=== PATIENT | male | born 1965 | race Caucasian/White ===

== ENCOUNTER 2017-08-11 22:41 | Inpatient (IN) | payer BC ==
--- NOTE | 2017-08-11 23:35 | ED PDOC ---
Arrival/HPI - General Chief Complaint: GI Problem Time Seen by Provider: 08/11/17 22:52 - History of Present Illness Narrative History of Present Illness (Text): 52 y/o M c PMHx HTN p/w GI bleeding today. Patient reports 4 bowel movements today, the last two with BRBPR, painful while defecating. Also with abdominal pain earlier but not now. Denies fever, chills, chest pain, dyspnea, nausea, vomiting, dysuria. Patient being treated for prostatitis for the past few weeks. Past Medical History - Cardiac Hx Hypertension: No - Psychiatric Hx Substance Use: No - Surgical History Hx Joint Replacement: Yes Family/Social History Family/Social History: No Known Family HX Smoking Status: no Hx Alcohol Use: No Hx Substance Use: No Allergies/Home Meds Allergies/Adverse Reactions: Allergies No Known Allergies Allergy (Verified 08/11/17 22:58) Home Medications: Home Meds Medication Instructions Recorded Confirmed Esomeprazole Magnesium [Nexium] 20 mg PO DAILY 08/12/17 08/12/17 Valsartan/Hydrochlorothiazide 1 each PO DAILY 08/12/17 08/12/17 [Diovan Hct 320-25 mg Tablet] Review of Systems - Physician Review All systems were reviewed & negative as marked: Yes - Review of Systems Constitutional: absent: Fevers Respiratory: absent: SOB Physical Exam - Physical Exam Narrative Physical Exam (Text): Gen: NAD Head: NC/AT ENT: MMM Eyes: PERRL Chest: No tenderness CV: Regular rate Lungs: CTA b/l Abd: Soft, NT Rectal: No external hemorrhoids. Mild prostate tenderness. Small amount of BRBPR. Extremities: No edema Skin: no rash Neuro: Alert Vital Signs Temp Pulse Resp BP Pulse Ox 08/12/17 02:57 71 18 124/62 98 08/12/17 00:41 98.1 F 76 18 136/74 100 08/11/17 22:59 98.2 F 78 18 158/84 H 99 Medical Decision Making ED Course and Treatment: Plan: -- CT Abd & Pelvis -- EKG -- Labs -- Chest X-Ray -- Urinalysis w/ micro -- Reassess and disposition Progress Notes: CXR Impression: No acute disease. EXAM: CT Abdomen and Pelvis With Intravenous Contrast Dictated and Authenticated by: Mukul Cosby MD 08/12/2017 1:56 AM IMPRESSION: 1. Gastric wall thickening versus underdistention. Clinical correlation is needed. 2. Incidental/non-acute findings are described above. 08/12/17 02:[address] Franz who is aware and agrees with the plan. Accepts patient into her service. 08/12/17 04:12 EKG: Ordered, reviewed, and independently interpreted the EKG. Rate : 73 BPM Rhythm : NSR Interpretation : No ST-segment elevations. Comparison : No previous EKG for comparison. - Lab Interpretations Lab Results: 08/11/17 23:04 08/11/17 23:04 Lab Results 08/11/17 23:04: Sodium 138, Potassium 3.4 L, Chloride 101, Carbon Dioxide 25, Anion Gap 15, BUN 19, Creatinine 1.0, Est GFR ( Amer) > 60, Est GFR (Non- Af Amer) > 60, Random Glucose 126 H, Calcium 8.9, Total Bilirubin 0.5, AST 74 H , ALT 133 H, Alkaline Phosphatase 64, Total Protein 7.4, Albumin 4.1, Globulin 3.3, Albumin/Globulin Ratio 1.2, Lipase 135 08/11/17 23:04: WBC 7.7, RBC 4.34, Hgb 14.4, Hct 39.5 L, MCV 91.0, MCH 33.2, MCHC 36.5, RDW 13.4, Plt Count 262, MPV 8.6, Gran % 56.1, Lymph % (Auto) 35.0, [place] % (Auto) 6.5 H, Eos % (Auto) 2.1, Baso % (Auto) 0.3, Gran # 4.35, Lymph # ( Auto) 2.7, [place] # (Auto) 0.5, Eos # (Auto) 0.2, Baso # (Auto) 0.02 - RAD Interpretation Radiology Orders: 08/11/17 23:30 ABD & PELVIS IV CONTRAST ONLY [CT] Stat CHEST PORTABLE [RAD] Stat - Medication Orders Current Medication Orders: Sodium Chloride (Sodium Chloride 0.9%) 1,000 mls @ 80 mls/hr IV .[id number] ONE Stop: 08/12/17 14:56 Last Admin: 08/12/17 02:43 Dose: 80 mls/hr eMAR Start Stop Document 08/12/17 02:43 DORI (Rec: 08/12/17 02:44 [email or web address] [id number]) Intravenous Solution Start Date 08/12/17 Start Time 02:44 Pantoprazole Sodium (Protonix Inj) 40 mg IVP DAILY OLIVE Discontinued Medications Pantoprazole Sodium (Protonix Inj) 40 mg IVP STAT STA Stop: 08/12/17 02:29 Last Admin: 08/12/17 02:43 Dose: 40 mg IVP Administration Document 08/12/17 02:43 DORI (Rec: 08/12/17 02:43 DORI [id number]) Charges for Administration # of IVP Administrations 1 Disposition/Present on Arrival - Present on Arrival Any Indicators Present on Arrival: No History of DVT/PE: No History of Uncontrolled Diabetes: No Urinary Catheter: No History of Decub. Ulcer: No History Surgical Site Infection Following: None - Disposition Have Diagnosis and Disposition been Completed?: Yes Diagnosis: GI bleed Disposition: HOSPITALIZED Disposition Time: 02:04 Patient Plan: Admission Condition: GUARDED
[2017-08-12 00:14] LABS: BASO # 0.02 K/mm3 (0.0-2.0); BASO % 0.3 % (0.0-3.0); EOS # 0.2 (0.0-0.7); EOS % 2.1 % (1.5-5.0); GRAN # 4.35 (1.4-6.5); GRAN % 56.1 % (50.0-68.0); HEMOGLOBIN 14.4 g/dL (14.0-18.0); LYMPH # 2.7 (1.2-3.4); MEAN CORPUSCULAR HEMOGLOBIN 33.2 pg (25.0-35.0); MEAN CORPUSCULAR HGB CONC 36.5 g/dl (31.0-37.0); MEAN PLATELET VOLUME 8.6 fl (7.0-11.0); MONO # 0.5 (0.1-0.6); MONO % 6.5 % (1.0-6.0); RBC 4.34 10^6/uL (3.5-6.1); RED CELL DISTRIBUTION WIDTH 13.4 % (11.5-14.5); WHITE BLOOD COUNT 7.7 10^3/ul (4.5-11.0)
[2017-08-12 00:17] LABS: ALB/GLOB RATIO 1.2 (1.1-1.8); ALBUMIN 4.1 g/dL (3.0-4.8); CALCIUM 8.9 mg/dL (8.4-10.5); GFR AFRICAN-AMERICAN > 60; GFR NON-AFRICAN AMERICAN > 60; LIPASE 135 U/L (23-300)
[2017-08-12 00:22] LABS: ALT/SGPT 133 U/L (7-56); AST/SGOT 74 U/L (17-59); BLOOD UREA NITROGEN 19 mg/dL (7-21)
[2017-08-12] MEDS ORDERED: Iohexol 350 MG/100 ML VIAL ONE (00:33)
--- NOTE | 2017-08-12 01:56 | CT ---
EXAM: CT Abdomen and Pelvis With Intravenous Contrast CLINICAL HISTORY: 52 years old, male; Pain; Abdominal pain; Generalized; Additional info: Gi bleed TECHNIQUE: Axial computed tomography images of the abdomen and pelvis with intravenous contrast. All CT scans at this facility use one or more dose reduction techniques, viz.: automated exposure control; ma/kV adjustment per patient size (including targeted exams where dose is matched to indication; i.e. head); or iterative reconstruction technique. Coronal and sagittal reformatted images were created and reviewed. CONTRAST: 96 mL of OMNI 350 administered intravenously. COMPARISON: No relevant prior studies available. FINDINGS: Lung bases: Minimal atelectasis/scarring. ABDOMEN: Liver: Fatty infiltration. Gallbladder and bile ducts: No calcified stones. No ductal dilation. Pancreas: No ductal dilation. No mass. Spleen: No splenomegaly. Adrenals: No mass. Kidneys and ureters: No mass. No hydronephrosis. Stomach and bowel: Mild mural thickening versus underdistention body/fundus of stomach. No definite bowel wall thickening. No obstruction. PELVIS: Appendix: Appendectomy. Bladder: Unremarkable. Reproductive: Unremarkable as visualized. ABDOMEN and PELVIS: Intraperitoneal space: No significant fluid collection. No free air. Bones/joints: Mild degenerative changes of spine. No acute fracture. Soft tissues: Small LEFT inguinal hernia containing fat. Vasculature: Minimal atherosclerotic disease. No aneurysm. Lymph nodes: No pathologically enlarged lymph nodes. IMPRESSION: 1. Gastric wall thickening versus underdistention. Clinical correlation is needed. 2. Incidental/non-acute findings are described above.
[2017-08-12] MEDS ORDERED: Sodium Chloride 0.9% 1,000 ML IV ONE (02:27)
[2017-08-12 03:02] LABS: URINE BILIRUBIN NEGATIVE (NEGATIVE); URINE BLOOD NEGATIVE (NEGATIVE); URINE GLUCOSE (UA) NEGATIVE (NEGATIVE); URINE LEUKOCYTE ESTERASE NEGATIVE Leu/uL (NEGATIVE); URINE PROTEIN TRACE mg/dL (<30 mg/dL); URINE UROBILINOGEN 0.2 E.U./dL (<1 E.U./dL)
[2017-08-12 03:14] LABS: URINE APPEARANCE CLEAR (CLEAR); URINE COLOR YELLOW (YELLOW)
[2017-08-12 03:15] LABS: URINE EPITHELIAL CELLS 0 - 2 /hpf (0-5); URINE RBC 0 - 2 /hpf (0-2); URINE WBC 0 - 2 /hpf (0-6)
--- NOTE | 2017-08-12 08:39 | RAD ---
HISTORY: gi bleed COMPARISON: No prior. FINDINGS: LUNGS: No active pulmonary disease. PLEURA: No significant pleural effusion identified, no pneumothorax apparent. CARDIOVASCULAR: Normal. OSSEOUS STRUCTURES: No significant abnormalities. VISUALIZED UPPER ABDOMEN: Normal. OTHER FINDINGS: None. IMPRESSION: No active disease.
[2017-08-12 09:54] LABS: BASO # 0.03 K/mm3 (0.0-2.0); BASO % 0.5 % (0.0-3.0); EOS # 0.1 (0.0-0.7); GRAN # 3.61 (1.4-6.5); HEMOGLOBIN 13.7 g/dL (14.0-18.0); LYMPH # 1.9 (1.2-3.4); LYMPH % 31.2 % (22.0-35.0); MEAN CELL VOLUME 90.8 fl (80.0-105.0); MEAN CORPUSCULAR HEMOGLOBIN 32.2 pg (25.0-35.0); MEAN CORPUSCULAR HGB CONC 35.4 g/dl (31.0-37.0); MEAN PLATELET VOLUME 8.3 fl (7.0-11.0); MONO # 0.4 (0.1-0.6); MONO % 6.3 % (1.0-6.0); RBC 4.26 10^6/uL (3.5-6.1); RED CELL DISTRIBUTION WIDTH 13.5 % (11.5-14.5)
[2017-08-12 10:04] LABS: BLOOD UREA NITROGEN 16 mg/dL (7-21); CALCIUM 8.3 mg/dL (8.4-10.5); GFR AFRICAN-AMERICAN > 60; GFR NON-AFRICAN AMERICAN > 60
--- NOTE | 2017-08-12 10:32 | CARD ---
APPROVED REPORT EKG Measurement Heart [id number] <Conclusion> Normal sinus rhythm RSR' or QR pattern in V1 suggests right ventricular conduction delay Borderline ECG
--- NOTE | 2017-08-12 11:55 | CP.PCM.CON ---
History of Present Illness - History of Present Illness History of Present Illness: PGY-2 GI consult note for Dr. Tate 52 yo male with PMH HTN presents with GI bleeding. Patient reports 4 bowel movements throughtout the day yesterday. Patient states that he had normal BM in the morning however his second BM later in gladys day was associated with abd pain. Patient states that he had 2 more BM in the evening both with bright red blood per rectum. Patient states that he was recently treated for prostatitis. He states that he was having painful in his anus while defecating. He was told he had large, inflammed prostate and was following up with urologist. He denies previous bleeding. He denies fever, chills, chest pain, dyspnea, nausea, vomiting, dysuria. He denies use of over the counter medication like Motrin, Tylenol. Last colonoscopy about 1-2 years ago, no abnormalities per patient. No previous EGD. PMH: HTN psh: appendectomy, knee repair social history: denies smoking, drinks about 1 case of beer per week, deneis illicit drug use family history: denies Past Patient History - Past Social History Smoking Status: Former Smoker - CARDIAC Hx Hypertension: Yes - MUSCULOSKELETAL/RHEUMATOLOGICAL Hx Falls: No - PSYCHIATRIC Hx Substance Use: No - SURGICAL HISTORY Hx Joint Replacement: Yes Meds Allergies/Adverse Reactions: Allergies Allergy/AdvReac Type Severity Reaction Status Date / Time No Known Allergies Allergy Verified 08/11/17 22:58 - Medications Medications: Current Medications Sodium Chloride (Sodium Chloride 0.9%) 1,000 mls @ 80 mls/hr IV .[id number] ONE Stop: 08/12/17 14:56 Last Admin: 08/12/17 02:43 Dose: 80 mls/hr Pantoprazole Sodium (Protonix Inj) 40 mg IVP DAILY OLIVE Physical Exam - Constitutional Appears: No Acute Distress - Head Exam Head Exam: ATRAUMATIC, NORMOCEPHALIC - Eye Exam Eye Exam: EOMI, Normal appearance - ENT Exam ENT Exam: Mucous Membranes Moist - Respiratory Exam Respiratory Exam: Clear to Auscultation Bilateral, NORMAL BREATHING PATTERN. absent: Rales, Rhonchi, Wheezes, Respiratory Distress, Stridor - Cardiovascular Exam Cardiovascular Exam: REGULAR RHYTHM, +S1, +S2. absent: Bradycardia, Tachycardia , Systolic Murmur - GI/Abdominal Exam GI & Abdominal Exam: Normal Bowel Sounds, Soft. absent: Distended, Firm, Guarding, Hernia, Tenderness - Extremities Exam Extremities exam: Positive for: normal inspection. Negative for: pedal edema, tenderness - Neurological Exam Neurological exam: Alert, Oriented x3 - Skin Skin Exam: Dry, Intact, Normal Color, Warm Results - Vital Signs Recent Vital Signs: Last Vital Signs Temp 98.2 F 08/12/17 08:39 Pulse 72 08/12/17 08:39 Resp 20 08/12/17 08:39 BP 127/77 08/12/17 08:39 Pulse Ox 97 08/12/17 08:39 - Labs Result Diagrams: 08/12/17 09:48 08/12/17 09:48 Labs: Laboratory Results - last 24 hr 08/12/17 08/12/17 08/12/17 02:49 09:48 09:48 WBC 6.0 D RBC 4.26 Hgb 13.7 L Hct 38.7 L MCV 90.8 MCH 32.2 MCHC 35.4 RDW 13.5 Plt Count 218 MPV 8.3 Gran % 60.0 Lymph % (Auto) 31.2 Glynn % (Auto) 6.3 H Eos % (Auto) 2.0 Baso % (Auto) 0.5 Gran # 3.61 Lymph # (Auto) 1.9 Glynn # (Auto) 0.4 Eos # (Auto) 0.1 Baso # (Auto) 0.03 Sodium 140 Potassium 3.8 Chloride 105 Carbon Dioxide 24 Anion Gap 15 BUN 16 Creatinine 0.9 Est GFR ( Amer) > 60 Est GFR (Non-Af Amer) > 60 Random Glucose 114 H Calcium 8.3 L Carcinoembryonic Ag Urine Color Yellow Urine Appearance Clear Urine pH 6.0 Ur Specific [place] 1.020 Urine Protein Trace H Urine Glucose (UA) Negative Urine Ketones Negative Urine Blood Negative Urine Nitrate Negative Urine Bilirubin Negative Urine Urobilinogen 0.2 Ur Leukocyte Esterase Negative Urine RBC 0 - 2 Urine WBC 0 - 2 Ur Epithelial Cells 0 - 2 Stool Occult Blood 08/12/17 08/12/17 09:48 09:50 WBC RBC Hgb Hct MCV MCH MCHC RDW Plt Count MPV Gran % Lymph % (Auto) Glynn % (Auto) Eos % (Auto) Baso % (Auto) Gran # Lymph # (Auto) Glynn # (Auto) Eos # (Auto) Baso # (Auto) Sodium Potassium Chloride Carbon Dioxide Anion Gap BUN Creatinine Est GFR ( Amer) Est GFR (Non-Af Amer) Random Glucose Calcium Carcinoembryonic Ag 1.4 Urine Color Urine Appearance Urine pH Ur Specific [place] Urine Protein Urine Glucose (UA) Urine Ketones Urine Blood Urine Nitrate Urine Bilirubin Urine Urobilinogen Ur Leukocyte Esterase Urine RBC Urine WBC Ur Epithelial Cells Stool Occult Blood Positive H Assessment & Plan - Assessment and Plan (Free Text) Assessment: 52 yo male with PMH HTN presents with GI bleeding. Plan: - differential diagnoses include hemohrroids, Diverticulosis - CT abd/pelvis with IV contrast showed gastric wall thickening vs under distension - continue monitor H&H - continue PPI daily - patient will most likely require elective colonoscopy case reviewed and discussed with Dr. Tate
[2017-08-13] MEDS ORDERED: Oxycodone/Acetaminophen 5/325 mg Tab PO PRN (06:53)
[2017-08-13] MEDS ORDERED: Sodium Chloride 0.9% 1,000 ML IV SCH ×2 (07:00→15:00)
--- NOTE | 2017-08-13 07:04 | HP ---
CHIEF COMPLAINT AND HISTORY OF PRESENT ILLNESS: This is a 52-year-old male who had come into the hospital complaining of rectal bleeding. He says he has had multiple bowel movements with bleeding. He also had a bowel movement this morning that was bleeding. He says he has no abdominal pain. He says that he has been drinking. He drinks anywhere 1 to 4 drinks a day. He denies NSAID use. The patient has no complaints of any fevers or chills. No nausea, no vomiting. No dysuria. No headaches. No dizziness. No blurred vision. He had a colonoscopy about 2 years ago. He has not had any EGDs in the past. ALLERGIES: NO KNOWN DRUG ALLERGIES. HOME MEDICATIONS: Have been reviewed on the [facility]. PAST MEDICAL HISTORY: Hypertension. PAST SURGICAL HISTORY: Appendectomy, knee repair. SOCIAL HISTORY: He denies smoking. He does drink almost daily. FAMILY HISTORY: Noncontributory. PHYSICAL EXAMINATION: VITAL SIGNS: Temperature is 98.2, pulse is 72, blood pressure is 127/77, respirations 20, O2 saturation is 97%. Height is 5 feet 5 inches, weight is 188 pounds. BMI is 31.3. GENERAL: The patient lying in bed, uncomfortable, and in no acute distress. HEENT: Atraumatic and normocephalic. Anicteric sclerae. Moist mucosa. Rigby conjunctivae. No oral lesions. NECK: No JVD, anterior and posterior adenopathy, thyromegaly, or bruits. CARDIOVASCULAR: S1 and S2 regular. No murmur, rubs, or gallop. LUNGS: Clear to auscultation bilaterally. No wheezes, rales, or rhonchi. ABDOMEN: Bowel sounds are positive. Soft, nontender and nondistended. No hepatosplenomegaly. No rebound and no guarding EXTREMITIES: No cyanosis, clubbing, or edema. NEUROLOGIC: No facial asymmetry. Tongue is midline. No uvula deviation. Power is 5/5 upper extremity and lower extremity. Sensation intact in upper extremity and lower extremity. PSYCHIATRIC: He is awake, alert and oriented x3. No anxiety or depression. He has normal affect. GENITOURINARY: No CVA tenderness. VASCULAR: 2+ pulses in the carotid pulses and pedal pulses. SKIN: No erythema or nodules SPINE: Shows normal curvature. LABORATORY DATA: White count is 7.7, hemoglobin 14.4, platelet count is 262. Chemistry shows sodium 138, potassium is 3.4, creatinine is 1. AST 74, ALT is 133, albumin is 4.1. Urine shows glucose is negative. Blood is negative. Nitrites are negative. The stool occult is positive. Chest x-ray done shows no active disease. CT of the abdomen and pelvis done shows gastric wall thickening. EKG shows sinus rhythm at 73, QTc is 412. ASSESSMENT: 1. Rectal bleeding. 2. Hypertension. PLAN: The patient is currently admitted to the hospital. He is on IV fluids. This was discontinued. He is on Protonix daily. Patient is currently n.p.o. He is being seen by GI. The patient is on Protonix. We will continue to monitor his H and H. We will repeat his CBC. We will await further input from GI. Tobin Jefferson MD
[2017-08-13 07:22] LABS: HEMOGLOBIN 13.4 g/dL (14.0-18.0); MEAN CELL VOLUME 92.2 fl (80.0-105.0); MEAN CORPUSCULAR HEMOGLOBIN 31.8 pg (25.0-35.0); MEAN CORPUSCULAR HGB CONC 34.5 g/dl (31.0-37.0); MEAN PLATELET VOLUME 8.4 fl (7.0-11.0); RBC 4.21 10^6/uL (3.5-6.1); RED CELL DISTRIBUTION WIDTH 13.8 % (11.5-14.5); WHITE BLOOD COUNT 6.3 10^3/ul (4.5-11.0)
[2017-08-13 07:55] LABS: IRON 85 ug/dL (45-180)
[2017-08-13 08:05] LABS: % IRON SATURATION 32 % (20-55); TOTAL IRON BINDING CAPACITY 268 ug/dL (261-462)
[2017-08-13] MEDS ORDERED: Peg-Electrolyte Oral Soln 4L (Golytely) PO STA (09:26)
[2017-08-13] MEDS ORDERED: Propofol 10 mg/ml Inj (20 ML) ONE (13:36)
[2017-08-13 15:17] VITALS: O2SAT 98
[2017-08-13 17:19] VITALS: BP 127/87; PULSE 61; RESP 12; TEMP 97.9
--- NOTE | 2017-08-14 17:54 | DS ---
HISTORY OF PRESENT ILLNESS: This is a 52-year-old male who has come in to the hospital because of rectal bleeding. The patient states that he had been bleeding and was concerned so he came in to the hospital for further evaluation. He was seen by GI. He had a repeat colonoscopy that was done this morning, it shows internal hemorrhoids, he otherwise felt well. He also had a EGD done, it showed gastritis. He also had diverticulosis that was seen. He was discharged home to follow up as an outpatient with primary care doctor. PHYSICAL EXAMINATION: VITAL SIGNS: Temperature is 97.9, pulse is 61, blood pressure is 127/87, respirations 12. GENERAL: The patient is lying in bed, flat, comfortable. HEENT: No oral lesion. Anicteric sclerae. Moist mucosa. NECK: No JVD, adenopathy, or thyromegaly. CARDIOVASCULAR: S1 and S2, regular. No murmurs, rubs, or gallops. LUNGS: Clear to auscultation bilaterally. No wheeze, rales, or rhonchi. ABDOMEN: Bowel sounds are positive, soft, nontender and nondistended. EXTREMITIES: No cyanosis, clubbing or edema. ASSESSMENT: 1. Rectal bleeding resolved. 2. Diverticulosis. 3. Hypertension. 4. Gastritis. PLAN: Patient is going to be discharged home today. He was on Protonix in the hospital. He is on a heart-healthy diet. He is going to follow up with his primary care doctor. CONDITION: Stable. ACTIVITY: Increase as tolerated. Tobin Jefferson MD
== END 2017-08-13 17:55 | disposition home or self-care (01) | DRG 379 ==
LOC: ED 22:41 → ERH 08-12 02:19 → 5RSO 08-12 04:34
PROVIDERS: ADMIT Internal Medicine Medical Oncology; ATTEND Internal Medicine Medical Oncology
PROC: 0DB68ZX Excision of Stomach, Via Natural or Artificial Opening Endoscopic, Diagnostic (ICD-10-PCS; principal; 2017-08-13 13:30)
PROC: 0DJD8ZZ Inspection of Lower Intestinal Tract, Via Natural or Artificial Opening Endoscopic (ICD-10-PCS; 2017-08-13 13:30)
DX: K92.2 Gastrointestinal hemorrhage, unspecified (principal); I10 Essential (primary) hypertension; Z87.891 Personal history of nicotine dependence; Z96.60 Presence of unspecified orthopedic joint implant; K29.50 Unspecified chronic gastritis without bleeding; K57.30 Diverticulosis of large intestine without perforation or abscess without bleeding; K64.8 Other hemorrhoids

== ENCOUNTER 2018-06-12 15:34 | Emergency (ER) | payer BC ==
[2018-06-12 16:05] VITALS: BP 112/52; PULSE 86; RESP 18; O2SAT 96; BMI 30.7
[2018-06-12 16:59] LABS: BASO # 0.02 K/mm3 (0.0-2.0); BASO % 0.1 % (0.0-3.0); EOS # 0.1 (0.0-0.7); EOS % 0.4 % (1.5-5.0); HEMOGLOBIN 15.5 g/dL (14.0-18.0); LYMPH # 1.8 (1.2-3.4); LYMPH % 11.3 % (22.0-35.0); MEAN CELL VOLUME 92.8 fl (80.0-105.0); MEAN CORPUSCULAR HEMOGLOBIN 32.7 pg (25.0-35.0); MEAN CORPUSCULAR HGB CONC 35.2 g/dl (31.0-37.0); MEAN PLATELET VOLUME 8.7 fl (7.0-11.0); RBC 4.74 10^6/uL (3.5-6.1); RED CELL DISTRIBUTION WIDTH 12.9 % (11.5-14.5)
[2018-06-12 17:01] LABS: URINE BILIRUBIN NEGATIVE (NEGATIVE); URINE BLOOD LARGE (NEGATIVE); URINE GLUCOSE (UA) NEGATIVE (NEGATIVE); URINE LEUKOCYTE ESTERASE MODERATE Leu/uL (NEGATIVE); URINE PROTEIN NEGATIVE mg/dL (<30 mg/dL); URINE UROBILINOGEN 0.2 E.U./dL (<1 E.U./dL)
[2018-06-12 17:03] LABS: URINE APPEARANCE SLIGHT-CLOUDY (CLEAR); URINE COLOR YELLOW (YELLOW)
--- NOTE | 2018-06-12 17:04 | ED PDOC ---
Arrival/HPI - General Chief Complaint: Male Genitourinary Time Seen by Provider: 06/12/18 15:37 Historian: Patient - History of Present Illness Narrative History of Present Illness (Text): 06/12/18 17:01 52-year-old male presents today with dysuria and urinary frequency that started this morning. Patient states this afternoon he started to develop right-sided abdominal pain with fever and chills. Patient complaining of continued dysuria and frequency. No testicular pain. No back pain. No chest pain or shortness of breath. No URI symptoms. Patient states he took an unknown medication early this afternoon without improvement in his symptoms. No other complaints Past Medical History - Provider Review Nursing Documentation Reviewed: Yes - Travel History Have you recently traveled outside [place] w/in the past 3 mons?: No - Cardiac Hx Cardiac Disorders: Yes Hx Hypertension: Yes Hx Pacemaker: No - Hematological/Oncological Hx Blood Transfusions: No Hx Blood Transfusion Reaction: No - Musculoskeletal/Rheumatological Hx Musculoskeletal Disorders: No - Psychiatric Hx Emotional Abuse: No Hx Physical Abuse: No Hx Substance Use: No - Surgical History Hx Appendectomy: Yes - Anesthesia Hx Anesthesia: Yes Hx Anesthesia Reactions: No Hx Malignant Hyperthermia: No - Suicidal Assessment Feels Threatened In Home Enviroment: No Family/Social History - Physician Review Nursing Documentation Reviewed: Yes Family/Social History: Unknown Family HX Smoking Status: Former Smoker Hx Alcohol Use: No Hx Substance Use: No Allergies/Home Meds Allergies/Adverse Reactions: Allergies No Known Allergies Allergy (Verified 06/12/18 15:55) Home Medications: Home Meds Medication Instructions Recorded Confirmed Esomeprazole Magnesium [Nexium] 20 mg PO DAILY 08/12/17 06/12/18 Losartan/Hydrochlorothiazide 1 each PO DAILY 06/12/18 06/12/18 [Losartan-Hctz 50-12.5 mg Tab] amLODIPine [Norvasc] 5 mg PO DAILY 06/12/18 06/12/18 Review of Systems - Review of Systems Constitutional: Fevers. absent: Fatigue ENT: absent: Sore Throat, Sinus Congestion Respiratory: absent: SOB, Cough Cardiovascular: absent: Chest Pain, Palpitations Gastrointestinal: Abdominal Pain. absent: Constipation, Diarrhea, Nausea, Vomiting Genitourinary Male: Dysuria, Frequency. absent: Hematuria Musculoskeletal: absent: Arthralgias, Back Pain, Neck Pain Skin: absent: Rash, Pruritis Neurological: absent: Headache, Dizziness Psychiatric: absent: Anxiety, Depression Physical Exam Vital Signs Reviewed: Yes Vital Signs Temp Pulse Resp BP Pulse Ox 06/12/18 15:48 99.3 F 86 18 112/52 L 96 Temperature: Afebrile Blood Pressure: Normal Pulse: Regular Respiratory Rate: Normal Appearance: Positive for: Well-Appearing, Non-Toxic, Comfortable Pain Distress: None Mental Status: Positive for: Alert and Oriented X 3 - Systems Exam Head: Present: Atraumatic Mouth: Present: Moist Mucous Membranes Neck: Present: Normal Range of Motion Respiratory/Chest: Present: Clear to Auscultation, Good Air Exchange. No: Respiratory Distress, Accessory Muscle Use Cardiovascular: Present: Regular Rate and Rhythm, Normal S1, S2. No: Murmurs Abdomen: Present: Tenderness (minimal rlq tenderness). No: Distention, Peritoneal Signs, Rebound, Guarding Genitourinary Male: Present: Normal External Genitalia, Other (chaparoned by Albert ZULETA). No: Circumcised Penis, Penile Discharge, Testicle Tenderness, Testicle Swelling Back: Present: Normal Inspection. No: CVA Tenderness, Midline Tenderness, Paraspinal Tenderness Upper Extremity: Present: Normal ROM Lower Extremity: Present: Normal ROM Neurological: Present: GCS=15 Skin: Present: Warm, Dry, Normal Color. No: Rashes Psychiatric: Present: Alert, Oriented x 3 Medical Decision Making ED Course and Treatment: 06/12/18 17:03 52-year-old male with right-sided abdominal pain dysuria and urinary frequency with subjective fevers at home all symptoms started today. CBC White blood cell count 16.0 CMP within normal limits Urinalysis: + wbcs, + bacteria Urine culture is pending CAT scan of the abdomen and pelvis:FINDINGS: LOWER THORAX: Minimal linear scar/atelectasis in right lower lobe. LIVER: Unremarkable. No gross lesion or ductal dilatation. GALLBLADDER AND BILE DUCTS: Unremarkable. PANCREAS: Unremarkable. No gross lesion or ductal dilatation. SPLEEN: Unremarkable. ADRENALS: Unremarkable. No mass. KIDNEYS AND URETERS: Unremarkable. No hydronephrosis. No solid mass. VASCULATURE: Unremarkable. No aortic aneurysm. No aortic atherosclerotic calcification or mural plaque present. BOWEL: Unremarkable. No obstruction. No gross mural thickening. APPENDIX: Status post appendectomy PERITONEUM: Unremarkable. No free fluid. No free air. LYMPH NODES: Unremarkable. No enlarged lymph nodes. BLADDER: Bladder poorly distended. Diffuse mural thickening and mucosal enhancement. Possible cystitis. Correlate with urinalysis. REPRODUCTIVE: Normal prostate BONES: No acute fracture. OTHER FINDINGS: None. IMPRESSION: Possible cystitis. No other significant abnormality. 06/12/18 18:40 pt reassessment; pt feeling better after medications; vitals stable. pt started on keflex Po for UTI. all results discussed with patient and his daughter in depth; rx for keflex given. pt advised to f/u with PMD and take medications as prescribed. pt was advised to return immediately if symptoms worsen, persist or if new symptoms develop. Patient verbalizes understanding of discharge instructions and need for immediate followup. All aspects of this case were discussed the attending of record. Impression; UTI Motrin every 6 hours as needed for pain/fever reduction Keflex 1 tablet twice daily times 10 days Increase fluids Follow-up with a primary care physician within the next 2 days Follow-up with urologist within the next 2 days Return immediately if symptoms worsen persist or if new concerning symptoms develop Reassessment Condition: Re-examined, Improved - RAD Interpretation Radiology Orders: 06/12/18 16:22 ABD & PELVIS IV CONTRAST ONLY [CT] Stat - Medication Orders Current Medication Orders: Ketorolac Tromethamine (Toradol) 30 mg IVP STAT STA Stop: 06/12/18 17:01 Disposition/Present on Arrival - Present on Arrival Any Indicators Present on Arrival: No History of DVT/PE: No History of Uncontrolled Diabetes: No Urinary Catheter: No History of Decub. Ulcer: No History Surgical Site Infection Following: None - Disposition Have Diagnosis and Disposition been Completed?: Yes Diagnosis: Urinary tract infection Disposition: HOME/ ROUTINE Disposition Time: 17:04 Patient Plan: Discharge Patient Problems: Current Active Problems Problem Status Onset Urinary tract infection Acute Condition: GOOD Discharge Instructions (ExitCare): Urinary Tract Infections in Adults Additional Instructions: Motrin every 6 hours as needed for pain/fever reduction Keflex 1 tablet twice daily times 10 days Increase fluids Follow-up with a primary care physician within the next 2 days Follow-up with urologist within the next 2 days Return immediately if symptoms worsen persist or if new concerning symptoms develop Prescriptions: Cephalexin [Keflex] 500 mg PO BID #20 capsule Ibuprofen [Motrin] 600 mg PO Q6H PRN #20 tab PRN Reason: pain/fever reduction Referrals: Rafa Gregory APN [Advanced Practice Nurse] - Follow up with primary Raffy Carbajal MD [Staff Provider] - Follow up with primary Lovely Carbajal MD [Staff Provider] - Follow up with primary [employer] [facility] [Outside] - Follow up with primary Forms: [facility] (Amharic), WORK NOTE
[2018-06-12 17:06] LABS: URINE WBC 25 - 30 /hpf (0-6)
[2018-06-12 17:07] LABS: ALB/GLOB RATIO 1.1 (1.1-1.8); ALBUMIN 4.4 g/dL (3.0-4.8); ALT/SGPT 212 U/L (7-56); AST/SGOT 91 U/L (17-59); BLOOD UREA NITROGEN 10 mg/dL (7-21); CALCIUM 9.3 mg/dL (8.4-10.5); GFR NON-AFRICAN AMERICAN > 60; LIPASE 64 U/L (23-300)
[2018-06-12] MEDS ORDERED: Iohexol 350 MG/100 ML VIAL ONE (17:56)
--- NOTE | 2018-06-12 18:32 | CT ---
Date of service: 06/12/2018 PROCEDURE: CT Abdomen and Pelvis with contrast HISTORY: right sided abdominal pain, dysuria, fever COMPARISON: 08/12/2017 TECHNIQUE: Contrast dose: 100 mL Omnipaque 350 Radiation dose: Total exam DLP = 584.41 mGy-cm. This CT exam was performed using one or more of the following dose reduction techniques: Automated exposure control, adjustment of the mA and/or kV according to patient size, and/or use of iterative reconstruction technique. FINDINGS: LOWER THORAX: Minimal linear scar/atelectasis in right lower lobe. LIVER: Unremarkable. No gross lesion or ductal dilatation. GALLBLADDER AND BILE DUCTS: Unremarkable. PANCREAS: Unremarkable. No gross lesion or ductal dilatation. SPLEEN: Unremarkable. ADRENALS: Unremarkable. No mass. KIDNEYS AND URETERS: Unremarkable. No hydronephrosis. No solid mass. VASCULATURE: Unremarkable. No aortic aneurysm. No aortic atherosclerotic calcification or mural plaque present. BOWEL: Unremarkable. No obstruction. No gross mural thickening. APPENDIX: Status post appendectomy PERITONEUM: Unremarkable. No free fluid. No free air. LYMPH NODES: Unremarkable. No enlarged lymph nodes. BLADDER: Bladder poorly distended. Diffuse mural thickening and mucosal enhancement. Possible cystitis. Correlate with urinalysis. REPRODUCTIVE: Normal prostate BONES: No acute fracture. OTHER FINDINGS: None. IMPRESSION: Possible cystitis. No other significant abnormality.
[2018-06-12 19:45] VITALS: TEMP 98.2
== END 2018-06-12 19:39 | disposition home or self-care (01) ==
LOC: ED 15:34
DX: N39.0 Urinary tract infection, site not specified (principal); I10 Essential (primary) hypertension; Z87.891 Personal history of nicotine dependence
CPT/HCPCS: 74177; 80053; 81001; 83690; 85025; 87086; 87181; 96374; 99284; J1885; Q9967